=== PATIENT | born 2000 ===

== ENCOUNTER 2024-06-23 15:00 | Outpatient (REF) | payer SELFPAY ==
[2024-06-24 21:38] LABS: Hepatitis B Surface Ag Negative (Negative)
[2024-06-24 22:07] LABS: Hepatitis C Ab w Rflx HCV PCR Negative (Negative)
[2024-06-24 22:39] LABS: HIV-1/2 Ag & Ab Screen Negative (Negative)
== END 2024-06-23 15:01 | disposition home or self-care (01) ==
LOC: NCHCN 15:00
PROVIDERS: Visit Provider Internal Medicine
DX: Z77.21 Contact with and (suspected) exposure to potentially hazardous body fluids (principal)
CPT/HCPCS: 86803; 87340; 87389